=== PATIENT | male | born 1945 | race Caucasian/White ===

== ENCOUNTER 2023-05-08 11:06 | Outpatient (CLI) | payer MEDICARE | END 2023-05-08 11:07 | disposition home or self-care (01) | LOC: CSHRAD 11:06 | PROVIDERS: ATTEND Physician Assistant | DX: M54.50 Low back pain, unspecified (principal); M53.86 Other specified dorsopathies, lumbar region; M47.816 Spondylosis without myelopathy or radiculopathy, lumbar region | CPT/HCPCS: 72100 ==